=== PATIENT | male | born 1985 | race Two or more races ===

== ENCOUNTER 2017-03-04 14:12 | Emergency (ER) | payer SELFPAY ==
[~2017-03-04] VITALS: Ht 165.1 cm; Wt 63.5 kg
[2017-03-04 15:27] VITALS: Ht 165.1 cm; Wt 63.5 kg
[2017-03-04 17:15] VITALS: BP 122/64
== END 2017-03-04 17:15 | disposition home or self-care (01) ==
LOC: ED 14:12
DX: H00.013 Hordeolum externum right eye, unspecified eyelid (principal); H10.33 Unspecified acute conjunctivitis, bilateral